=== PATIENT | male | born 1970 | race Caucasian/White ===

== ENCOUNTER → 2016-10-11 | Outpatient (CLI) | payer OTHER, MEDICAID | LOC: BHCLAF 14:00 | PROVIDERS: ATTEND Internal Medicine Cardiovascular Disease | DX: I35.9 Nonrheumatic aortic valve disorder, unspecified (principal); I34.9 Nonrheumatic mitral valve disorder, unspecified | CPT/HCPCS: 93306-PO ==

== ENCOUNTER → 2016-11-05 | Day surgery (SDC) | payer OTHER, MEDICAID ==
[~2016-11-05] MED LIST: BUPIVACAINE 0.5% 30 ML SDV ONE; DEXAMETHASONE 4 MG/ML VIAL ONE; GLYCOPYRROLATE 0.2 MG/1 ML VIAL ONE; HYDROCODONE/APAP 5/325 TAB PO PRN; LIDOCAINE 1% 2 ML INJ ID PRN; LR 1,000 ML IV ONE; LR 500 ML IV PRN; MIDAZOLAM 2 MG/2 ML VIAL IVP ONE; NALOXONE HCL 0.4 MG/ML INJ IVP PRN; ONDANSETRON 4 MG/2 ML VIAL ONE; ONDANSETRON DISINTEGRATING 4 MG TAB PO PRN; PROPOFOL/EMULSION 500 MG/50 ML BOTTLE IV ONE; ROCURONIUM 50 MG/5 ML VIAL ONE; SUGAMMADEX SODIUM 200 MG/2 ML VIAL IVP ONE; ceFAZolin 2 GM/DEXTROSE 100 ML IV ONE; epHEDrine SULFATE 10 MG/ML SYR ONE; fentaNYL 100 MCG/2 ML INJ IVP PRN; fentaNYL 100 MCG/2 ML INJ ONE
--- NOTE | 2016-11-05 06:54 | PDANEPAE ---
ANE Past Medical History - Cardiovascular History Hx Hypertension: No Hx Arrhythmias: Yes Hx Chest Pain: No Hx Coronary Artery / Peripheral Vascular Disease: No Hx CHF / Valvular Disease: Yes Hx Palpitations: No Cardiovascular History Comment: BRADYCARDIA. AVR - Pulmonary History Hx COPD: No Hx Asthma/Reactive Airway Disease: No Hx Recent Upper Respiratory Infection: No Hx Oxygen in Use at Home: Yes Hx Sleep Apnea: Yes Sleep Apnea Screening Result - Last Documented: Positive Pulmonary History Comment: LINDA POSITIVE USES CPAP- INSTRUCTED CAREGIVER TO BRING TO HOSPITAL. HX OF PNA AND SCARRING TO LUNGS TO LEFT SIDE - Neurologic History Hx Cerebrovascular Accident: No Hx Seizures: No Hx Dementia: No - Endocrine History Hx Diabetes: No Hypothyroid: Yes Obesity: yes Endocrine History Comment: HYPOTHYROIDISM - Renal History Hx Renal Disorders: No - Liver History Hx Hepatic Disorders: No - Neurological & Psychiatric Hx Hx Neurological and Psychiatric Disorders: Yes Neurological / Psychiatric History Comment: DOWNS SYNDROM. SEASONAL DEPRESSION. OCD - Cancer History Hx Cancer: No - Congenital Disorder History Hx Congenital Disorders: No - GI History Hx Gastrointestinal Disorders: Yes Gastrointestinal History Comment: REFLUX. LOOSE STOOLS - Other Health History Other Health History: WEARS GLASSES. CYSTIC ACNE-NO FLARE UPS NOW - Chronic Pain History Chronic Pain: No - Surgical History Prior Surgeries: AVR REPLACEMENT 1996. EGD'S ONCE YEARLY ANE Review of Systems - Exercise capacity METS (RN): 4 METS ANE Patient History - Allergies Allergies/Adverse Reactions: aspirin Allergy (Verified 11/04/16 14:20) - Home Medications Home Medications: Citalopram Hydrobromide [celeXA 10 MG] 04/15/14 [Last Taken 11/04/16] Levothyroxine [Synthroid 125 mcg (*)] 04/15/14 [Last Taken 11/04/16] [place] Carbonate ER [Lithobid 300 mg (*)] 04/15/14 [Last Taken 11/04/16] Loratadine [Claritin 10 mg] 04/15/14 [Last Taken 11/03/16] Mineral Oil [Mineral Oil (*)] 04/15/14 [Last Taken 11/04/16] Multivitamins [Multivitamin (*)] 04/15/14 [Last Taken 11/04/16] [place]vid-3 Fatty Acids [Fish Oil 1000 mg (*)] 04/15/14 [Last Taken 11/02/16] Omeprazole [Prilosec] 04/15/14 [Last Taken 11/04/16] Psyllium Husk [Metamucil] 04/15/14 [Last Taken 11/04/16] Albuterol [Proventil Inhaler HFA (*)] 11/04/16 [Last Taken 09/05/16] Lovenox 11/04/16 [Last Taken 11/04/16] Warfarin Sodium [Coumadin 7.5MG (*)] 11/04/16 [Last Taken 11/02/16] - NPO status NPO Since - Liquids (Date): 11/04/16 NPO Since - Liquids (Time): 07:30 NPO Since - Solids (Date): 11/04/16 NPO Since - Solids (Time): 07:30 - Smoking Hx Smoking Status: Never smoked - Family Anes Hx Family Hx Anesthesia Complications: NONE ANE Labs/Vital Signs - Vital Signs Blood Pressure: 95/69 Heart Rate: 52 Respiratory Rate: 18 O2 Sat (%): 96 Height: 167.64 cm Weight: 77.564 kg ANE Physical Exam - Airway Mallampati Score: Class 2 Mouth exam: abnormal chin - Pulmonary Pulmonary: no respiratory distress - Cardiovascular Cardiovascular: regular rate and rhythym - ASA Status ASA Status: III ANE Anesthesia Plan Anesthesia Plan: GA w LMA
[2016-11-05 07:09] LABS: INR 1.26 (0.83-1.16); PROTIME(PATIENT) 15.8 SEC (12.0-15.0)
--- NOTE | 2016-11-05 07:21 | PDHPUP ---
History & Physical Update H&P update statement: This history and physical update is based on an assessment of the patient which was completed after admission or registration (within 24 hours), but prior to the surgery/procedure. H&P update: H&P reviewed & patient examined, no change in patient's condition since H&P completed
--- NOTE | 2016-11-05 08:36 | POSTOPPROG ---
Post Op Note Date of Operation: 11/05/16 Surgeon: Rom Rodriguez Anesthesiologist: lyly Anesthesia: GET(General Endotracheal) Pre-op Diagnosis: rih Post-op Diagnosis: same Indication: pain Procedure: lap rih, explore left Findings: large indirect/ - on left Inf/Abcess present in the surg proc area at time of surgery?: No Depth: Organ Space EBL: Minimal Complications: 0
--- NOTE | 2016-11-05 08:41 | POSTANESTH ---
Post Anesthetic Evaluation Cardiovascular Status: Normal, Stable Respiratory Status: Normal, Stable Level of Consciousness/Mental Status: Can Participate in Eval, Alert and Oriented Pain Control: Adequate, Prn Tx Ordered Nausea/Vomiting Control: Adequate, Prn Tx Ordered Complications Possibly Related to Anesthesia: None Noted
[2016-11-05 12:08] VITALS: TEMP 98.1
[2016-11-05 12:09] VITALS: BP 111/60; PULSE 60; RESP 14; O2SAT 98
--- NOTE | 2016-11-05 17:50 | GOP ---
[f rep st] OPERATIVE REPORT DATE OF OPERATION: 11/05/2016 SURGEON: Rom Rodriguez MD HOUSEKEEPING ASSOCIATE: None. ANESTHESIA: Chaim Dong MD. PREOPERATIVE DIAGNOSIS: Right inguinal hernia. POSTOPERATIVE DIAGNOSIS: Right inguinal hernia. PROCEDURE PERFORMED: Patient was taken to the operating room where he received satisfactory general endotracheal anesthesia by Dr. Dong. He was placed in supine position and prepped and draped in the usual sterile fashion. Infraumbilical incision was made. Dissection was carried down to the rectus sheath which was incised. A subfascial tunnel was developed in the preperitoneal space. Th at was dissected free with a balloon dissector, which was replaced with a CO2 insufflation trocar. Two other trocars placed under direct vision in the lower midline. Hang ligament was exposed bila terally. The cords were mobilized bilaterally. Peritoneum was dissected off the cord structures. On the left side there was no evidence of herniation. On the right, there was a large indirect sac which was dissected free and reduced along with a large lipoma. A Covidien polyester mesh split pat ch was introduced and the limb passed around the cord structures. It was anchored in place with Abs orbaTack, securing the Hang ligament, lacunar ligament, the anterior abdominal wall, and lateral a bdominal wall outside the internal ring. Hemostasis was thoroughly assured. Trocars were removed u nder direct vision. Pneumopreperitoneum was released. Trocar sites were closed with 0 Vicryl for t he fascia and 4-0 Monocryl subcuticular stitch for the skin. All layers were infiltrated with 0.5% Marcaine. Blood loss was negligible. No complications. He was taken to the recovery room in good condition. FINDINGS: Patient was found to have a large indirect right inguinal hernia but no evidence of herni ation on the left. DESCRIPTION OF PROCEDURE: PROCEDURE: Laparoscopic right inguinal hernia repair with mesh and exploration of the left side. /[id number]/MODL
== END | disposition home or self-care (01) ==
LOC: UNDOADMOB 05:48 → F3N 05:48 → EDSTATUS 07:15 → FSGY 08:05 → UNDODISOB 11:46
PROVIDERS: ATTEND Surgery
PROC: 0YU54JZ Supplement Right Inguinal Region with Synthetic Substitute, Percutaneous Endoscopic Approach (ICD-10-PCS; principal; 2016-11-05 07:15)
DX: K40.90 Unilateral inguinal hernia, without obstruction or gangrene, not specified as recurrent (principal); R00.1 Bradycardia, unspecified; Q90.9 Down syndrome, unspecified; I05.9 Rheumatic mitral valve disease, unspecified; E03.9 Hypothyroidism, unspecified; G47.33 Obstructive sleep apnea (adult) (pediatric); Z95.4 Presence of other heart-valve replacement; Z79.01 Long term (current) use of anticoagulants
CPT/HCPCS: 49650; C1727; C1781; J0690; J1100; J2250; J2405; J2704; J3010

== ENCOUNTER 2017-02-13 11:45 | Emergency (ER) | payer OTHER, MEDICAID ==
[2017-02-13 11:53] VITALS: RESP 20; TEMP 98.6
[2017-02-13] MEDS ORDERED: LIDOCAINE 2% JELLY 5 ML TUBE TP ONE (12:07)
[2017-02-13] MEDS: LIDOCAINE 2% JELLY 20 ML (UROJECT) TP ONE ×2 (12:10→12:26)
--- NOTE | 2017-02-13 12:25 | EDPHY ---
H & P Time Seen by Provider: 02/13/17 11:55 HPI/ROS: This patient with Down Syndrome was brought in by his caretakers of 14 years by private vehicle for evaluation of facial abrasions from their young dog. He explained that they recently adopted a 1 1/2 y.0. mid-sized dog (40#'s) and the family was playing with the dog today & scratched the pt. Caretakers report that the patient likes to wear a Cape, and it seems that the dog was startled by this cape while playing on a bed and reached up with his paw, inadvertently scratching the patient's face with abrasion to the right lateral nose and lower lip with mild bleeding controlled by direct pressure prior to arrival. ROS: Neuro: No headache. HEENT: No dental trauma. No ocular injury. No other complaints 5 point ROS is otherwise negative Past Medical/Surgical History: Down syndrome Mitral valve replacement on Coumadin Smoking Status: Never smoked Physical Exam: Physical Exam Vital signs are normal. General: Pleasant 46-year-old male with Down's facies in No acute distress HEENT: The patient has superficial abrasions to the right lateral nose as well as an abrasion to the left lower lip -4 mm, well-approximated, partial- thickness no subcutaneous tissues exposed. No foreign body with mild bleeding from the lower lip. No dental trauma on intraoral exam. No intraoral lacerations. No bony tenderness to the nose or elsewhere on the face. Eyes: Pupils equal and react to light. Extraocular motions are intact. Neck: Nontender Lungs: No respiratory distress. Cardiac: Brisk capillary refill is intact throughout. Skin: No rash or pallor. Neuro: Alert with no evident focal sensorimotor deficits. Constitutional: Initial Vital Signs Temperature (C) 37 C 02/13/17 11:50 Heart Rate 65 02/13/17 11:50 Respiratory Rate 20 02/13/17 11:50 Blood Pressure 90/65 L 02/13/17 11:50 O2 Sat (%) 95 02/13/17 11:50 O2 Delivery Mode Heliox Allergies/Adverse Reactions: aspirin Allergy (Verified 02/13/17 11:54) Home Medications: Medication Instructions Recorded Citalopram Hydrobromide [celeXA 10 04/15/14 MG] Levothyroxine [Synthroid 125 mcg 04/15/14 (*)] Circle Carbonate ER [Lithobid 300 04/15/14 mg (*)] Loratadine [Claritin 10 mg] 04/15/14 Mineral Oil [Mineral Oil (*)] 04/15/14 Multivitamins [Multivitamin (*)] 04/15/14 [place]-3 Fatty Acids [Fish Oil 1000 04/15/14 mg (*)] Omeprazole [Prilosec] 04/15/14 Psyllium Husk [Metamucil] 04/15/14 Albuterol [Proventil Inhaler HFA 11/04/16 (*)] Warfarin Sodium [Coumadin 7.5MG 11/04/16 (*)] MDM/Departure - MDM Medications Given: Discontinued Medications Lidocaine (Uroject Lidocaine 2% Jelly) 20 ml TP EDNOW ONE Stop: 02/13/17 12:03 Last Admin: 02/13/17 12:26 Dose: Not Given Lidocaine (Lidocaine 2% Jelly) 1 flavio TP EDNOW ONE Stop: 02/13/17 12:08 Last Admin: 02/13/17 12:10 Dose: 1 flavio ED Course/Re-evaluation: Let solution is applied the patient's wound by our nurse. Wounds are cleaned by our nurse. With gauze compression after wound cleaning the lip wound is good hemostasis and good approximation. Local wound care Discussion: After conversation with patient and family given good cosmesis and hemostasis without sutures we elected to hold on suture the superficial lip wound. I counseled patient and family regarding wound care. - Depart Disposition: Home, Routine, Self-Care Clinical Impression: Superficial lip laceration Facial abrasion Qualifiers: Encounter type: initial encounter Qualified Code(s): S00.81XA - Abrasion of other part of head, initial encounter Condition: Good Instructions: Abrasion (ED) Additional Instructions: Diagnoses: 1. Superficial abrasion to nose 2. lip laceration-superficial Plan: Wound care-clean daily with warm soapy water gently Ice to lip today Return if he develops redness, discharge or other concerns for infection. Tylenol if needed for discomfort. Referrals: Ramos Burr DO [Primary Care Provider] - As per Instructions
[2017-02-13 12:37] LABS: INR 3.47 (0.83-1.16); PROTIME(PATIENT) 34.9 SEC (12.0-15.0)
[2017-02-13 13:22] VITALS: BP 96/60; PULSE 68; O2SAT 93
== END 2017-02-13 13:21 | disposition home or self-care (01) ==
LOC: CED 11:45
DX: S00.81XA Abrasion of other part of head, initial encounter (principal); Z79.01 Long term (current) use of anticoagulants; W54.8XXA Other contact with dog, initial encounter
CPT/HCPCS: 85610-PO

== ENCOUNTER → 2018-01-16 | Outpatient (CLI) | payer OTHER, MEDICAID | LOC: BHFA 14:00 | PROVIDERS: ATTEND Internal Medicine Cardiovascular Disease | DX: I35.9 Nonrheumatic aortic valve disorder, unspecified (principal) ==

== ENCOUNTER → 2018-02-28 | Outpatient (CLI) | payer OTHER, MEDICAID | LOC: BHFA 15:30 | PROVIDERS: ATTEND Internal Medicine Cardiovascular Disease | DX: I38 Endocarditis, valve unspecified (principal); Z95.2 Presence of prosthetic heart valve ==

== ENCOUNTER 2018-06-25 14:10 | Emergency (ER) | payer OTHER, MEDICAID | END 2018-06-25 16:05 | disposition home or self-care (01) | LOC: CED 14:10 ==

== ENCOUNTER → 2018-07-10 | Outpatient (CLI) | payer OTHER, MEDICAID | LOC: CIMAGING 10:26 | PROVIDERS: ATTEND Family Medicine | DX: M25.561 Pain in right knee (principal) | CPT/HCPCS: 36415-PO; 93971-PO ==